=== PATIENT | male | born 1960 | race African-American/Black ===

== ENCOUNTER 2024-04-09 11:20 | Emergency (ER) | payer MEDICAID ==
[~2024-04-09] VITALS: Ht 180.3 cm; Wt 77.1 kg
[2024-04-09] MEDS ORDERED: GABAPENTIN600 MG PO (11:41)
[2024-04-09] MEDS ORDERED: QUET100 PO (11:41)
[2024-04-09] MEDS ORDERED: Seroquel300 MG PO (11:41)
[2024-04-09] MEDS ORDERED: PARO10 PO (11:41)
== END 2024-04-09 11:47 | disposition home or self-care (01) ==
LOC: ER 11:20
DX: Z76.0 Encounter for issue of repeat prescription (principal); Z79.899 Other long term (current) drug therapy
CPT/HCPCS: 99281

== ENCOUNTER 2024-07-12 18:46 | Observation (INO) | payer MEDICAID ==
[~2024-07-12] VITALS: Ht 177.8 cm; Wt 81.7 kg
[~2024-07-12 18:46] MED LIST: GABAPENTIN600 MG PO; PARO10 PO; QUET100 PO; Seroquel300 MG PO
[2024-07-12] MEDS ORDERED: LORazepam 2 MG/ML 1ML Injection IM ONE (19:30)
[2024-07-12] MEDS ORDERED: DiphenhydrAMINE HCl 50 MG/ML 1ML Vial IM ONE (19:30)
[2024-07-12] MEDS ORDERED: Haloperidol Lactate Inj. 5 MG/ML Injection IM ONE (19:30)
[2024-07-12 20:20] LABS: BASOPHILS ABSOLUTE AUTO 0.04 K/mm3 (0.00-0.23); BASOPHILS PERCENT AUTO 0 % (0-2); EOSINOPHILS PERCENT AUTO 0 % (0-6); Hematocrit 38.3 % (37.0-53.0); Hemoglobin 13.5 g/dL (13.5-17.5); IMMATURE GRAN ABSOLUTE AUTO 0.02 K/mm3 (0.00-0.10); IMMATURE GRAN PERCENT AUTO 0 % (0-1); LYMPHOCYTES ABSOLUTE AUTO 1.62 K/mm3 (0.84-5.20); LYMPHOCYTES PERCENT AUTO 15 % (21-46); MONOCYTES ABSOLUTE AUTO 1.06 K/mm3 (0.16-1.47); MONOCYTES PERCENT AUTO 10 % (4-13); Mean Corpuscular HGB 28.8 pg (26.0-34.0); Mean Corpuscular HGB Conc 35.2 g/dL (31.5-36.5); Mean Corpuscular Volume 82 fL (80-100); Mean Platelet Volume 9.4 fL (9.1-12.4); NEUTROPHILS ABSOLUTE AUTO 7.95 K/mm3 (1.96-9.15); NEUTROPHILS PERCENT AUTO 74 % (41-73); Platelet Count 219 K/mm3 (150-400); RDW Coefficient Variation 14.9 % (11.7-14.2); RDW Standard Deviation 44.7 fL (35.1-46.3); Red Blood Cell Count 4.68 M/mm3 (4.30-5.90); White Blood Cell Count 10.69 K/mm3 (4.00-11.30)
[2024-07-12 20:42] LABS: Ethanol (Alcohol), Blood, Med <3 mg/dL; Salicylate 2.6 mg/dL (2.8-20.0)
[2024-07-12 21:05] LABS: Alanine Aminotransfer (ALT/SGP 40 U/L (12-78); Albumin, Blood 4.5 g/dL (3.4-5.0); Albumin/Globulin Ratio 1.2 (0.8-1.8); Alk Phos 76 U/L (50-136); Anion Gap 14 mmol/L (3-11); Aspartate Aminotrans (AST/SGOT 118 U/L (12-37); Bilirubin, Total 1.5 mg/dL (0.1-1.0); Blood Urea Nitrogen 25 mg/dL (8-24); Bun/Creatinine Ratio 20.2 (12.0-20.0); CO2, Blood 23 mmol/L (21-32); Calcium, Blood 9.8 mg/dL (8.5-10.1); Chloride, Blood 101 mmol/L (98-108); Creatinine, Blood 1.24 mg/dL (0.60-1.20); Globulin, Blood 3.7 g/dL (2.2-4.0); Glomerular Filtration Rate 66 (60-); Glucose, Blood 129 mg/dL (70-99); Sodium, Blood 135 mmol/L (136-145); Total Protein, Blood 8.2 g/dL (6.4-8.2)
[2024-07-12 21:07] LABS: Acetaminophen, Random <2.0 ug/mL (10.0-30.0)
[2024-07-13] MEDS ORDERED: Potassium Chloride 20 MEQ TabCR PO ONE ×2 (01:05→04:35)
[2024-07-13 19:20] LABS: Influenza A, PCR NEGATIVE (NEGATIVE); Influenza B, PCR NEGATIVE (NEGATIVE); Resp Syncytial Virus, PCR NEGATIVE (NEGATIVE); SARS-Cov-2 (COVID-19) PCR, MMC NEGATIVE (NEGATIVE)
[2024-07-13 20:05] LABS: Source, Urine Clean Catch
[2024-07-13 20:12] LABS: Bilirubin, Urine Neg (Neg); Blood, Urine 2+ (Neg); Glucose Qualitative, Urine Neg (Neg); Ketones, Urine 2+ (Neg); Leukocyte Esterase, Urine Neg (Neg); Nitrite, Urine Neg (Neg); Protein, Urine 2+ (Neg); Urobilinogen, Urine 3+ (Normal)
[2024-07-13 20:24] LABS: Appearance, Urine Clear (Clear); Color, Urine Pale Yellow (P-Yellow)
[2024-07-13 20:25] LABS: Bacteria Rare /hpf; Squamous Epithelial Cells Rare /hpf (Few); White Blood Cells, Urine 0-2 /hpf (0-5)
[2024-07-13 20:26] LABS: U Amphetamine Screen DETECTED; U Barbituate Screen Not Detected; U Benzodiazapine Screen DETECTED; U Buprenorphine Screen Not Detected; U Cannabinoids Screen DETECTED; U Cocaine Screen Not Detected; U Methadone Screen Not Detected; U Methamphetamine Screen DETECTED; U Opiates Screen Not Detected; U Oxycodone Screen Not Detected; U Phencyclidine Screen Not Detected
[2024-07-13] MEDS ORDERED: Gabapentin 300 MG Cap PO SCH (21:00)
[2024-07-14] MEDS ORDERED: QUEtiapine Fumarate 100 MG Tab PO SCH (09:00)
[2024-07-14] MEDS ORDERED: PARoxetine HCl 10 MG Tab PO SCH (09:00)
== END 2024-07-13 21:30 | disposition other institution (70) ==
LOC: ER 18:46 → EOR 18:47
PROVIDERS: Emergency Medicine; ADMIT Emergency Medicine
DX: F20.9 Schizophrenia, unspecified (principal); T14.91XA Suicide attempt, initial encounter; X76.XXXA Intentional self-harm by smoke, fire and flames, initial encounter; F17.210 Nicotine dependence, cigarettes, uncomplicated; F17.290 Nicotine dependence, other tobacco product, uncomplicated; F19.10 Other psychoactive substance abuse, uncomplicated; Z79.899 Other long term (current) drug therapy
CPT/HCPCS: 0241U; 80053; 80320; 81001; 84132; 85025; 93005; 93010; 96372; 96372-59; 99285-25; A9270; G0378; G0480; J1200; J1630; J2060

== ENCOUNTER 2024-07-13 15:31 | Inpatient (IN) | payer MEDICAID ==
[2024-07-13] MEDS ORDERED: FLU VACC TS2024-25(6MOS UP)/PF 45 MCG/0.5 ML SYRINGE IM ONE (20:05)
[2024-07-13] MEDS ORDERED: OLANZapine ODT 10 MG Tab MM PRN (20:05)
[2024-07-13] MEDS ORDERED: OLANZapine ODT 5 MG Tab MM PRN (20:05)
[2024-07-13] MEDS ORDERED: QUEtiapine Fumarate 25 MG Tab PO PRN (20:05)
--- NOTE | 2024-07-13 21:34 | NUR ---
PATIENT ARRIVED ON U UNIT AT 4, AMBULATING SELF.
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
[2024-07-14 08:37] VITALS: BP 108/71
[2024-07-14] MEDS ORDERED: QUEtiapine Fumarate 100 MG Tab PO SCH (11:00)
--- NOTE | 2024-07-14 17:40 | NUR ---
SHIFT SUMMARY PT A/O X3; PLEASANT AND COOPERATIVE WITH CARE. PT HAS BEEN SLEEPING FOR THE MAJORITY OF THE SHIFT BUT HAS LEFT HIS ROOM FOR MEALS. PT REPORTS NOT SLEEPING WELL LAST NIGHT AND IS TIRED AND ANXIOUS. PT TREATED PER EMR FOR ANXIETY. PT REPORTED SI WITH A PLAN, NOTHING HE IS ABLE TO CARRY OUT HERE. PT SAID THAT HE MAY FEEL BETTER AFTER GETTING SOME SLEEP. DENIES HI OR ANY HALLUCINATIONS AT THIS TIME.
[2024-07-14] MEDS ORDERED: QUEtiapine Fumarate 200 MG Tab PO SCH (21:00)
[2024-07-14 22:09] VITALS: BP 102/62
--- NOTE | 2024-07-15 03:54 | NUR ---
PATIENT WAS IN BED THE ENTIRE SHIFT. HE WAS AWAKE FOR MEDICATION ADMINISTRATION AND WAS PLEASANT AND COOPERATIVE WITH CARES. HE WONDERED "WHY I DON'T HAVE ALL MY MEDICATIONS" BUT WAS NOT UPSET ABOUT IT. AFTER MEDICATION PASS, HE STAYED IN BED, WHERE HE WAS RESTING QUIETLY WITH EYES CLOSED AND RESPIRATIONS CONFIRMED. HE HAD NO S/SX SUICIDAL IDEATION NOTED THIS SHIFT.
[2024-07-15 08:36] VITALS: BP 124/80
[2024-07-15] MEDS ORDERED: PARoxetine HCl 10 MG Tab PO SCH (10:00)
--- NOTE | 2024-07-15 16:34 | NUR ---
SHIFT SUMMARY PT A/O X4; PLEASANT AND COOPERATIVE WITH CARE. PT ATTENDED MOST GROUPS AND MEALS THIS SHIFT. HE REPORTED SOME ANXIETY THIS MORNING AND TREATED PER EMR. HOME MEDICATIONS UPDATED IN EMR WELL. PT ENDORSED SI THIS AM BUT DOES NOT HAVE A PLAN. PT DENIES HI OR ANY HALLUCINATIONS.
[2024-07-15] MEDS ORDERED: Ibuprofen 400 MG Tab PO PRN (20:15)
--- NOTE | 2024-07-15 20:52 | NUR ---
PATIENT DECLINED HIS SEROQUEL NETO, STATING THAT "WHEN SOMEONE IS NEAR ME, i DON'T LIKE TO TAKE IT". HE NOW HAS A ROOMMATE. HE STATED THAT HE COULD SLEEP WITHOUT IT. WILL FOLLOW UP.
[2024-07-15] MEDS ORDERED: Gabapentin 300 MG Cap PO SCH (21:00)
[2024-07-15 22:26] VITALS: BP 103/70
--- NOTE | 2024-07-16 04:29 | NUR ---
PATIENT WAS IN BED AWAKE AT BEGINNING OF SHIFT. HE WAS PLEASANT AND COOPERATIVE WITH CARES. HE REFUSED HIS EVENING SEROQUEL, STATING, "I DON'T FEEL COMFORTABLE TAKING IT WHEN SOMEONE IS IN MY ROOM". HIS REQUEST WAS HONORED. HE DENIED WANTING FOOD OR DRINK, AND WAS NOTED TO SPEND THE REST OF THE SHIFT IN BED WITH EYES CLOSED AND RESPIRATIONS CONFIRMED. NO S/SX SUICIDAL IDEATION NOTED THIS SHIFT.
[2024-07-16 09:18] VITALS: BP 109/79
--- NOTE | 2024-07-16 16:13 | NUR ---
Pt is A&O, calm, cooperative, eye contact is good. Pt stated that his mood was "down," affect is constricted. Pt endorses SI thoughts but stated that he is safe here and has no current plan or intent for self-harm. Pt endorses "light" level of AH of voices telling him to "harm myself." He denies HI and VH. Pt denied pain or other medical issues. Pt said that he was restless throughout the nigh and slept poorly. Pt only participated in one group for about 20 minutes and stayed in his room most of the day, avoiding activity on the milieu. Provider has increased paroxetine from 10mg to 20mg qam. Pt is med compliatn, no PRNs given this shift.
--- NOTE | 2024-07-17 05:58 | NUR ---
Patient spent most of the evening resting in his room. He was cooperative with assessment. He took his scheduled medication and PRN ibuprofen without issue. He denied any concerns or symptoms other than tooth pain at this time. He is able to make his needs known. Plan of care ongoing. He appeared to be sleeping for 9 hours.
[2024-07-17 08:31] VITALS: BP 114/76
[2024-07-17] MEDS ORDERED: PARoxetine HCl 20 MG Tab PO SCH (09:00)
--- NOTE | 2024-07-17 16:18 | NUR ---
Pt is A&O, calm, cooperative, eye contact is fleeting. Pt presents with depressed mood, "depressed and tired," with a blunted affect. He endorses SI thoughts without plan or intent. Pt denies HI and AVH. Pt c/o dental pain 8/10w and received PRN ibuprofen with his morning meds; he was asleep at time of reassessment. Public Health Administrator placed and order for dental hygienist consult. Pt spent most of the day isolating to his room, but did go out on the patio for about 15 minutes.
--- NOTE | 2024-07-17 16:56 | NUR ---
At about 1650 pt c/o dental pain 8/10w and received PRN ibuprofen at 1655.
[2024-07-17] MEDS ORDERED: Acetaminophen 325 MG TABLET PO PRN (20:45)
--- NOTE | 2024-07-18 06:00 | NUR ---
Patient was initially in the activity room watching TV and socializing. When the room was closed shortly after shift-change, he returned to his room and rested in bed. He was cooperative with assessment. He took his scheduled medication without issue. He continues to complain of tooth pain and requested acetaminophen for said pain, for which an order was obtained. He denied any other concerns or any symptoms at this time. He is able to make his needs known. Plan of care ongoing. He appeared to be sleeping for 9 hours.
[2024-07-18 09:11] VITALS: BP 92/63
--- NOTE | 2024-07-18 18:04 | NUR ---
SHIFT SUMMARY: PT ALERT, ORIENTED AND COOPERATIVE WITH CARE. COMPLIANT WITH MEDICATIONS. DENIES SI OR HI. PT ENGAGED IN DEPT MILIEU AND WAS VISIBLE ON THE UNIT MOST OF THE DAY. C/O DENTAL PAIN, WAS MEDICATED WITH PRN IBUPROFEN AND TYLENOL PER EMR.
[2024-07-18] MEDS ORDERED: QUEtiapine Fumarate 300 MG Tab PO SCH (21:00)
[2024-07-18 21:31] VITALS: BP 100/63
--- NOTE | 2024-07-19 05:55 | NUR ---
Patient spent most of the evening watching football on TV. He was cooperative with assessment. He took his scheduled medication and PRN ibuprofen without issue. He denied new concerns at this time and continues to complain of tooth pain. He denied symptoms at this time but did express that he was watching football as a coping skill. He is able to make his needs known. Plan of care ongoing. He appeared to be sleeping in her room for 9 hours.
[2024-07-19 08:14] VITALS: BP 109/72
--- NOTE | 2024-07-19 14:23 | NUR ---
DISCHARGE INFO: PT STATES THAT HE LIVES AT [address] [facility] IN [place]. STATES THAT HE NEEDS HELP GETTING BACK THERE. STATES THAT HE HAS INCOME THROUGH [employer] BUT DOES NOT HAVE ACCESS TO HIS FUNDS. STATES THAT HE TALKED TO SOMEONE AT [facility] AND WAS TOLD THEY DON'T HAVE SERVICE TO [place]. STATES THAT HE WAS VISITING HIS SON IN [place] AND NOW NEEDS TO GO BACK HOME. HE STATES THAT HE DOESN'T HAVE A PCP, "I DON'T GET SICK". STATES THAT HE KNOWS OF PLACES IN [place] THAT HAVE WALK IN CLINICS FOR MENTAL HEALTH BUT WAS NOT ABLE TO SUPPLY A NAME.
--- NOTE | 2024-07-19 17:13 | NUR ---
SHIFT SUMMARY: PT ALERT, ORIENTED AND COOPERATIVE. COMPLIANT WITH MEDICATIONS. PT PARTICIPATED IN AM GROUP BUT SLEPT THE MAJORITY OF THE DAY. WAS PRESENT IN THE UNIT DAY ROOM WATCHING TV BEFORE DINNER. PT ENDORESED SI BUT DENIED INTENTION.
--- NOTE | 2024-07-19 17:24 | NUR ---
SHIFT SUMMARY: PT ALERT, ORIENTED AND COOPERATIVE WITH CARE. COMPLIANT WITH MEDICATIONS. DENIED SI BUT DID STATE THAT HE WAS STILL HEARING VOICES THIS AM. HE SLEPT THE MAJORITY OF THE DAY BUT WAS ON THE UNIT WATCHING TV IN THE EVENING.
--- NOTE | 2024-07-19 17:30 | NUR ---
PT iNFORMATION Pt will be going back to his sister [place], confirmed via phone today that her address to discharge to is [address] [place] [address]. Have approval to set up a [employer] ticket and will be getting all details confirmed with social work after treatment team tomorrow.
[2024-07-20 00:05] VITALS: BP 119/77
--- NOTE | 2024-07-20 06:00 | NUR ---
Patient spent most of the evening watching TV with peers. He was cooperative with assessment. He took his scheduled medication and PRN ibuprofen without issue. He denied concerns at this time. He reported hearing voices off and on but not at the time of interaction. He also reported tooth pain at 7/10. He is able to make his needs known. Plan of care ongoing. He appeared to be sleeping for 8.5 hours.
[2024-07-20 08:49] VITALS: BP 102/89
--- NOTE | 2024-07-20 17:19 | NUR ---
SHIFT SUMMARY: PT ALERT, ORIENTED AND COPPERTIVE WITH CARE. PT REPORTS THAT HE IS STILL HEARING VOICES. HE STAYED IN HIS ROOM THE MAJORITY OF THE DAY LAYING ON HIS BED. PT UP FOR DINNER AND REQUESTED TO WATCH BASEBALL AFTER HE EATS. MEDICATED WITH PRN IBUPROFEN FOR DENTAL PAIN.
[2024-07-20 19:47] VITALS: BP 103/72
--- NOTE | 2024-07-21 06:18 | NUR ---
Patient spent most of the evening watching TV. He was cooperative with assessment. He took his scheduled medication and PRN ibuprofen without issue. He denied new concerns at this time. He denied symptoms at this time but was observed to be rocking back and forth while watching TV. He is able to make his needs known. Plan of care ongoing. He appeared to be sleeping for 9 hours.
[2024-07-21 08:22] VITALS: BP 136/67
[2024-07-21] MEDS ORDERED: HyDROXyzine HCl 25 MG Tab PO SCH (11:40)
[2024-07-21] MEDS ORDERED: Ibuprofen 400 MG Tab PO PRN (11:45)
--- NOTE | 2024-07-21 17:16 | NUR ---
SHIFT SUMMARY PT AxOx4. PLEASANT AND COOPERATIVE WITH CARE. PT DENIED SI THIS SHIFT BUT ENDORSED AUDITORY HALLUCINATIONS. PT HAD MED CHANGES IMPLEMENTED TODAY WITH REPORTED RELIEF. DENTAL HYGIENIST IN FOR CONSULT TODAY. PT HAD WITHDRAWN BEHAVIOR, MOSTLY STAYED IN BED FOR APPROXIMATELY THE FIRST HALF OF THE DAY. PT REPORTS FEELING "DOWN" THIS AM. PT DID MINGLE ON THE UNIT WITH PEERS/STAFF LATER IN THE DAY. PT IS CURRENTLY SITTING IN ROOM TALKING ON THE PHONE. DENIES ANY NEEDS AT THIS TIME.
--- NOTE | 2024-07-22 06:09 | NUR ---
Patient spent most of the evening watching TV. He was cooperative with assessment. He took his scheduled medication and PRN acetaminophen and ibuprofen without issue. He denied new concerns at this time. He denied symptoms at this time but was observed rocking back and forth while watching TV. He is able to make his needs known. Plan of care ongoing. He appeared to be sleeping for 8.5 hours.
[2024-07-22 08:27] VITALS: BP 113/80
--- NOTE | 2024-07-22 16:07 | NUR ---
SHIFT SUMMARY PT AxOx4. PLEASANT AND COOPERATIVE WITH CARE. PT DENIES SI/HI THIS SHIFT BUT ENDORES AUDITORY HALLUCINATIONS, REPORTING THEM "PARTICULARLY LOUD" THIS MORNING. PT WAS UP PACING THE HALLS EARLY, STATING "IT HELPS DISTRACT ME FROM THE VOICES." THE PATIENT ATTENDED GROUP AND TOOK MEDS PRESCRIBED THIS SHIFT. PT MEDICATED PER EMAR FOR DENTAL PAIN x2 TODAY WITH REPORTED RELIEF. HE ALSO REPORTED "VOICES ARE QUIETER" LATER IN THE AFTERNOON. PT WAS UP MINGLING WITH STAFF/PEERS, WATCHING [employer] GAME, APPEARING VERY ENGAGED AND CONTENT T/O THE DAY. PT IS CURRENTLY IN GROUP ROOM, EATING POPCORN, WATCHING TV. DENIES ANY NEEDS AT THIS TIME.
[2024-07-22] MEDS ORDERED: QUEtiapine Fumarate 50 MG TAB PO SCH (21:00)
[2024-07-22] MEDS ORDERED: QUEtiapine Fumarate 300 MG Tab PO SCH (21:00)
--- NOTE | 2024-07-22 22:41 | NUR ---
I WAS DIRECTED TO PLACE MISC ITEMS OF CLOTHING, SHOES AND BACKPACK IN A BIN WITH NO BELONGING LIST. I PLACED THE ITEMS IN THE BIN DIRECTED (BIN #2) WITH TAG NUMBERS [id number] AND [id number] AND PLACED THE PATIENT TAG ONTO THE BIN.
--- NOTE | 2024-07-23 04:21 | NUR ---
ASSUMED CARE FROM PRIOR SHIFT. PATIENT IS VISITING/SOCILIZING WITH STAFF AND OTHER PATIENTS. HE IS COMPLIANT WITH: CARE, ASSESSMENT AND MEDICATIONS. HE DENIES CURRENT SI. AH OR VH. HE HAS A LARGE PM SNCK AND FLUIDS. HE GOES TO BED WITHOUT ENCOURAGMENT. NO NOTED BEHAVIORS OR ISSUES. HE SLEEPS THROUGHOUT THE NIGHT.
[2024-07-23 08:21] VITALS: BP 103/64
--- NOTE | 2024-07-23 15:58 | NUR ---
SHIFT SUMMARY PT AA&OX4. PLEASANT AND COOPERATIVE WITH CARE. SPEECH AND EYE CONTACT APPROPRIATE. PT HAS BEEN IN GOOD SPIRITS AND REPORTS EXCITMENT AT GOING HOME AND SEEING HIS SISTER. HE SMILED WITH SHARING STORIES OF GROWING UP. PT DENIES SI. ENDORSES AH. HE STATES THAT HIS VOICES "WOKE HIM UP THIS MORNING" BUT HE WOULD NOR ELABORATE ON WHAT THEY WERE SAYING. PT COMPLIANT WITH MEDICATIONS. UP FOR MEALS AND GROUPS. HE HAS NO CURRENT NEEDS OR CONCERNS AT THIS TIME. WILL CONTINUE POC
[2024-07-23 22:24] VITALS: BP 103/72
--- NOTE | 2024-07-24 03:27 | NUR ---
PATIENT WAS PACING THE HALLWAYS AT THE BEGINNING OF SHIFT. HE WAS PLEASANT AND COOPERATIVE WITH CARES, INCLUDING EVENING MEDICATIONS. HE REQUESTED AND WAS GIVEN IBUPROFEN FOR TOOTH PAIN 01/27, WHICH WAS EFFECTIVE. HE WENT TO HIS ROOM SHORTLY AFTER EVENING MEDICATIONS, WHERE HE WAS NOTED TO BE IN BED RESTING WITH EYES CLOSED AND RESPIRATIONS CONFIRMED. HE HAD NO S/SX SUICIDAL IDEATION NOTED THIS SHIFT.
--- NOTE | 2024-07-24 08:35 | NUR ---
AM ASSESSMENT PT REPORTING FEELING GOOD AND POSITIVE ABOUT RETURNING HOME TO [facility]. PT DENIES ANY CURRENT SI AT THIS TIME. PT UP TO DINING ROOM FOR BREAKFAST AND EXCITED TO WATCH FOOTBALL GAME LATER TODAY. WILL CONTINUE TO MONITOR.
[2024-07-24 08:59] VITALS: BP 102/62
--- NOTE | 2024-07-24 17:55 | NUR ---
SHIFT SUMMARY PT DOING WELL THIS SHIFT, PT DENIES SI OR INTRUSIVE THOUGHTS. PT INTEREACTING WELL WITH STAFF AND PEERS. ENJOYS SPORTS GAMES. PT REQUESTED TYLENOL/ IBU 1X THIS SHIFT FOR TOOTH PAIN. PT UP MOST OF THE DAY AND ENGAGED WITH STAFF, PEERS, AND WATCHING TV. PT SPOKE WITH SISTER TODAY ON THE PHONE THAT HE REPORTS LIVES IN [place] WHERE HE IS RETURNING UPON DISCHARGE. NO CONCERNS THIS SHIFT AND WILL CONTINUE TO MONITOR PER UNIT PROTOCOLS.
--- NOTE | 2024-07-25 03:14 | NUR ---
PATIENT WAS AWAKE AT THE BEGINNING OF THE SHIFT, WATCHING TELEVISION WITH PEERS AND STAFF. HE WAS PLEASANT AND COOPERATIVE WITH CARES, INCLUDING EVENING MEDICATIONS. HE REQUESTED AND WAS GIVEN IBUPROFEN FOR TOOTH PAIN 04/28, WHICH WAS EFFECTIVE. HE WENT TO BED EARLY AND WAS NOTED TO BE RESTING QUIETLY WITH EYES CLOSED AND RESPIRATIONS CONFIRMED. HE HAD NO S/SX SUICIDAL IDEATION THIS SHIFT.
[2024-07-25 08:05] VITALS: BP 102/70
--- NOTE | 2024-07-25 09:32 | NUR ---
AM ASSESSMENT PT AMBULATING IN HALLWAY, CONTINUES TO REPORT HIGH ANXIETY EVERY MORNING, THUS FAST WALKING HELPS. PT VERY PLEASANT, COOPERATIVE, AND SUPPORTIVE TO OTHER PEERS AND STAFF. PT REPORTS LOOKING FORWARD TO RETURNING HOME TO SEE GRANDCHILDREN. PT REQUESTING TYLENOL/ IBU THIS AM FOR 6 TOOTH PAIN. WITH GOOD RESULTS TO 11/29. WILL CONTINUE TO MONITOR.
--- NOTE | 2024-07-25 16:38 | NUR ---
PT TV TIME PT HAS REMAINED IN TV ROOM MOST OF THE DAY WATCHING FOOTBALL. PT SOCIALIZING WITH PEERS AND STAFF DURING GAMES W/ NO C/O OF SI OR DISTRESS. PT VERY PLEASANT AND JOKING WITH STAFF. PT OUT OF TV ROOM FOR MEALS.
--- NOTE | 2024-07-25 17:01 | NUR ---
SHIFT SUMMARY PT COOPERATIVE, PLEASANT, AND HELPFUL WITH PEERS. PT VERY ENCOURAGING TO PEERS FOR PARTICIPATION AND COMMUNICATION. PT DENIES SI CURRENTLY. PT REPORTS LOOKING FORWARD TO GOING HOME TO SISTERS IN [place] AND CATCHING UP WITH BIRTHDAYS HE HAS RECENTLY MISSED. PT USE OF PHONE COUPLE TIMES THIS SHIFT TO CALL SISTER HE REPORTS VERY CLOSE TO AND IS HIS SUPPORT. PT CONTINUES TO HAVE C/O TOOTH PAIN DAILY W/ REQUEST FOR TYLENOL AND IBU IN A.M. PT SHOWERED TODAY AND HAS REMAINED IN TV ROOM MOST OF THE DAY WATCHING FOOTBALL HE ENJOYS THIS. OUT OF TV ROOM FOR MEALS/ SNACKS. WILL CONTINUE TO MONITOR PER UNIT PROTOCOLS.
[2024-07-25 20:30] VITALS: BP 111/60
--- NOTE | 2024-07-26 05:59 | NUR ---
Patient spent the evening watching TV. He was cooperative with assessment. He took his scheduled medication and PRN acetaminophen and ibuprofen without issue. He denied new concerns at this time. He denied symptoms at this time. He is able to make his needs known. Plan of care ongoing. He appeared to be sleeping in his bed for 8.5 hours.
[2024-07-26 08:07] VITALS: BP 112/83
--- NOTE | 2024-07-26 17:19 | NUR ---
SHIFT SUMMARY: PT ALERT, ORIENTED AND COOPERATIVE. COMPLIANT WITH MEDICATIONS. PT VISIBLE ON THE UNIT AND ACTIVE IN MILIEU. PT DENIES SI, HI OR AVH.
[2024-07-26 19:52] VITALS: BP 112/73
--- NOTE | 2024-07-27 05:47 | NUR ---
Patient spent most of the evening watching TV and socializing with peers and staff. He took his scheduled medication and PRN ibuprofen and acetaminophen without issue. He denied new concerns at this time but noted that he continued to hear voices, usually in the morning. He is able to make his needs known.Plan of care ongoing. He appeared to be resting for 8 hours.
[2024-07-27 08:48] VITALS: BP 119/71
--- NOTE | 2024-07-27 14:39 | NUR ---
Pt Discharge information Pt has a different county insurance when he returns home he needs to call [facility] providers and switch to [place] to ensure he can be seen in [place]. Pt has an appointment scheduled Friday at 9:30am at [facility]iders office, [address] [place] [address]. They have requested for arrival 30 minutes early to ensure he has time to fill out paperwork. Ensure to bring all documents listed below *Bring Proof of Address *Proof of Insurance *ID
--- NOTE | 2024-07-27 14:56 | NUR ---
SHIFT SUMMARY PT AxOx4. PLEASANT AND COOPERATIVE WITH CARE. PT REPORTS FEELING "ALRIGHT" THIS AM. HE STATES "THE VOICES ARE LOW TODAY, WHICH IS GOOD." PT IS FOLLOWING CARE PLAN INCLUDING TAKING MEDS PRESCRIBED, ATTENDING GROUPS AND MINGLING WITH PEERS/STAFF ON THE UNIT. PT MEDICATED FOR DENTAL PAIN x1 TODAY. DISCHARGE PLANNERS WORKING ON SAFE DC PLANS, EXPECTED TOMORROW. TAXI AND TRAIN TICKETS ARRANGED AND FOLLOW UP APPOINTMENTS SET UP FOR PT WHEN HE RETURNS TO [place], [place]. PT IS CURRENTLY SITTING IN GROUP ROOM WATCHING TV. DENIES ANY NEEDS AT THIS TIME.
[2024-07-27 20:50] VITALS: BP 112/72
--- NOTE | 2024-07-28 05:51 | NUR ---
Patient spent most of the evening watching TV and socializing with peers and staff. He was cooperative with assessment. He took his scheduled medication and PRN tramadol and acetaminophen for hip pain without issue. He denied new concerns at this time. He denied symptoms at this time. He is able to make his needs known. Plan of care ongoing. He appeared to be sleeping for 8 hours.
[2024-07-28 08:13] VITALS: BP 114/85
[2024-07-28] MEDS ORDERED: PARO20 PO (11:42)
[2024-07-28] MEDS ORDERED: QUET300 PO ×2 (11:45)
[2024-07-28] MEDS ORDERED: Seroquel Xr50 MG PO (11:45)
--- NOTE | 2024-07-28 13:50 | NUR ---
DISCHARGE SUMMARY PT A/O X4; PLEASANT AND COOPERATIVE WITH CARE. DENIES SI, HI, OR ANY HALLUCINATIONS. PT DISCHARGED HOME TO [place]ILLRIFT WITH HIS SISTER. MEDICATIONS FAXED TO [facility] AND PT TO TRANSFER MEDS TO LOCAL [facility] WHEN HE ARRIVES IN [place]. DISCHARGE ORDERS GONE OVER WITH PATIENT AND HE EXPRESSED UNDERSTANDING. BELONGINGS RETURNED TO PATIENT AND TRAIN TICKETS PROVIDED.
--- NOTE | 2024-07-28 14:09 | NUR ---
PATIENT BELONGINGS AND SAFE ITEMS RETURNED
== END 2024-07-28 13:51 | disposition home or self-care (01) | DRG 885 ==
LOC: BHU 15:31
PROVIDERS: ADMIT Psychiatry & Neurology Psychiatry
DX: F33.3 Major depressive disorder, recurrent, severe with psychotic symptoms (principal); F15.10 Other stimulant abuse, uncomplicated; F11.10 Opioid abuse, uncomplicated; Z79.899 Other long term (current) drug therapy
CPT/HCPCS: A9270